=== PATIENT | female | born 1975 | race Caucasian/White ===

== ENCOUNTER 2018-04-22 00:02 | Inpatient (IN) ==
[2018-04-22] MEDS ORDERED: PENICILLIN G POTASSIUM 5 MILLIONUNT in DEXTROSE 5 % IN WATER 100 ML IV ONE ×2 (00:34)
[2018-04-22] MEDS ORDERED: ONDANSETRON HCL/PF 2 MG/ML VIAL IV PRN (00:34)
[2018-04-22] MEDS ORDERED: DEXTROSE 5%-LACTATED RINGERS 1,000 ML IV PRN (00:34)
[2018-04-22] MEDS ORDERED: RINGER'S SOLUTION,LACTATED 1,000 ML IV ONE (00:34)
[2018-04-22] MEDS ORDERED: OXYTOCIN/DEXTROSE 5%-WATER 30 UNITS/500 ML BAG IV ONE (00:34)
[2018-04-22] MEDS: MISOPROSTOL 100 MCG TABLET VG PRN ×3 (01:29→09:37)
[2018-04-22] MEDS: PENICILLIN G POTASSIUM 2.5 MILLIONUNT in DEXTROSE 5 % IN WATER 100 ML IV SCH ×10 (05:35→17:49)
--- NOTE | 2018-04-22 12:18 | PN ---
Progess Note - Interim Date: 04/22/18 Time: 12:16 Narrative: 04/22/18 12:16 Patient rating her contractions as mild Vital signs stable. Status post 3 doses of Cytotec vaginally. FHT: reassuring Contractions q irregular Cervix: 50/-2 per nurse Impression: Intrauterine at 39-3/7 weeks induction of labor for advanced maternal age. Group B strep carrier-status post 3 doses of IV penicillin Plan: Continue present plan
--- NOTE | 2018-04-22 16:17 | PN ---
Progess Note - Interim Date: 04/22/18 Time: 16:14 Narrative: 04/22/18 16:14 Patient rating her contractions as mild Vital signs stable. Status post Cytotec 3 doses-last dose over 2 hours ago. FHT: 120 baseline, reassuring Contractions q 1-3 min Cervix: 1-2/60/-3, AROM-clear Impression: Intrauterine at 39-3/7 weeks induction of labor for advanced maternal age. GBS positive-status post 4 doses of IV penicillin Plan: Continue present plan
[2018-04-23] MEDS ORDERED: LIDOCAINE HCL 50 ML VIAL ONE (00:39)
[2018-04-23] MEDS: PENICILLIN G POTASSIUM 2.5 MILLIONUNT in DEXTROSE 5 % IN WATER 100 ML IV SCH ×2 (01:44)
[2018-04-23] MEDS ORDERED: NALOXONE HCL 1 MG/1 ML SYRG IV PRN (01:54)
[2018-04-23] MEDS ORDERED: ONDANSETRON HCL/PF 2 MG/ML VIAL IV PRN (01:54)
[2018-04-23] MEDS ORDERED: BUPIVACAINE HCL/0.9 % NACL/PF 250 ML EP PRN (01:54)
[2018-04-23] MEDS ORDERED: fentaNYL CITRATE/PF 50 MCG/ML AMPUL IT SCH (02:00)
--- NOTE | 2018-04-23 02:47 | OR ---
Anesthesia Procedure Note - Anesthesia Procedure Note Narrative: Vital Signs - Last Taken Temp 36.6 C 04/23/18 02:21 Pulse 98 04/23/18 02:21 Resp 20 04/23/18 02:21 BP 146/92 04/23/18 02:21 Pulse Ox 98 04/23/18 02:21 04/23/18 02:46 ANESTHESIA PROCEDURE NOTE Date of Procedure: 04/23/2018 Time of procedure: O2 30. Performed by: Fransico Elizondo CRNA Feed In Worker: None. Preprocedure diagnosis: Active labor. Post procedure diagnosis: Same. Procedure: Insertion of labor epidural. Indications: The patient is a 42 -year-old multigravida female in active labor requesting labor epidural for pain management. Findings: See below. Details of the procedure: The patient was placed in a sitting position. Back was prepped with DuraPrep. Patient was then draped in a sterile fashion. Lidocaine 1% was infiltrated to the skin and subcutaneous tissues at the level of the L3 4 interspace. The epidural space was identified using a 18-gauge Tuohy needle with [id number] technique. 20 mcg fentanyl was given intrathecally using a 27 ga. spinal needle. Epidural catheter was inserted without difficulty. Negative test dose was elicited using 5 mL of 1.5% preservative-free lidocaine plus epinephrine 1 200,000. The epidural catheter was then taped and secured in place. EBL: Minimal. Fluids: N/A. Specimen: N/A. Post procedure condition: The patient tolerated the procedure well. No complications were noted. Thank you for this consultation. Avelar CRNA
--- NOTE | 2018-04-23 04:23 | PN ---
Progess Note - Interim Date: 04/23/18 Time: 04:15 Narrative: 04/23/18 04:15 Patient comfortable with epidural Vital signs stable. Pitocin at 16 mu/min FHT 140 bpm, good BTBV, early decelerations Ctxs q 1-2 min Impression: 39 4/7 wks miedical induction of labor due to AMA. GBS carrier - s/ p IV PCN x 6 doses (last dose at 0140) Plan: anticipate soon.
[2018-04-23] MEDS ORDERED: LIDOCAINE HCL 50 ML VIAL IJ ONE (05:18)
--- NOTE | 2018-04-23 05:30 | OR ---
Operative Report - Dictated Report Narrative: Spontaneous vaginal delivery of viable male it 0506 on 04/23/2018 with Apgars 8 and 9, weighing 3912 g in DAVID position. Cord clamping delayed approximately 1 minute Placenta delivered complete, intact, with three vessel cord Estimated blood loss: less than 50 ml Anesthesia: Epidural and 1% lidocaine local anesthesia Lacerations: Second degree vaginal laceration (4 cm) repaired with 3-0 Vicryl Rapide History for MU Definition: * The number of deliveries resulting in a live the patient experienced prior to current hospitalization * The previous delivery of live twins or any live multiple gestation is considered one live event. *If primagravida or nulliparous is documented select zero for the number of previous live births. Live Events: 3
[2018-04-23] MEDS ORDERED: HYDROCORTISONE 30 APPL TUBE TP PRN (05:31)
[2018-04-23] MEDS ORDERED: GLYCERIN/WITCH HAZEL LEAF 40 APPL BOX TP PRN (05:31)
[2018-04-23] MEDS ORDERED: BENZOCAINE/MENTHOL 81 SPRAY CAN TP PRN (05:31)
[2018-04-23] MEDS ORDERED: OXYTOCIN/DEXTROSE 5%-WATER 30 UNITS/500 ML BAG IV ONE (05:31)
[2018-04-23] MEDS ORDERED: oxyCODONE HCL/ACETAMINOPHEN 1 TAB TABLET PO PRN ×2 (05:31)
[2018-04-23] MEDS ORDERED: BISACODYL 10 MG SUPP.RECT RC PRN (05:31)
[2018-04-23] MEDS ORDERED: SENNOSIDES 8.6 MG TABLET PO PRN (05:31)
[2018-04-23] MEDS: DOCUSATE SODIUM 100 MG CAPSULE PO SCH ×2 (10:27→20:17)
[2018-04-23] MEDS: IBUPROFEN 800 MG TABLET PO PRN ×2 (13:30→20:18)
--- NOTE | 2018-04-24 07:36 | PN ---
Subjective - Date and Time Seen Date: 04/24/18 Time: 07:35 Objective - Vitals Vitals: Last Vital Signs Temp 36.5 C 04/23/18 23:45 Pulse 68 04/23/18 23:45 Resp 20 04/23/18 23:45 BP 122/69 04/23/18 23:45 Pulse Ox 99 04/23/18 23:45 Patient denies complaints. Lochia wnl Abdomen - soft, nontender Uterus - firm, at umbilicus - 1 No calf tenderness Impression: day #1 - s/p spontaneous vaginal delivery. Advanced maternal age. Morbid obesity. Plan: Continue routine care.
[2018-04-24] MEDS: IBUPROFEN 800 MG TABLET PO PRN ×2 (08:04→21:46)
[2018-04-24] MEDS: DOCUSATE SODIUM 100 MG CAPSULE PO SCH ×2 (08:05→21:46)
[2018-04-25] MEDS: IBUPROFEN 800 MG TABLET PO PRN (04:43)
[2018-04-25 06:52] VITALS: BP 127/57
[2018-04-25] MEDS: DOCUSATE SODIUM 100 MG CAPSULE PO SCH (09:54)
--- NOTE | 2018-04-25 10:09 | PN ---
Subjective - Date and Time Seen Date: 04/25/18 Subjective Narrative: day 2, s/p doing well. no complaints. . normal lochia. Objective - Vitals Vitals: Last Vital Signs Temp 36.7 C 04/25/18 06:49 Pulse 71 04/25/18 06:49 Resp 16 04/25/18 06:49 BP 127/57 04/25/18 06:49 Pulse Ox 100 04/24/18 19:25 - Exam Constitutional: Present: Alert, Oriented x3, Cooperative Respiratory: Present: no respiratory distress Cardiovascular/Chest: Present: normal peripheral pulses Abdomen: Present: soft, nontender, nondistended, other - fundus firm, below umbilicus and non-tender Extremity: Present: normal range of motion, no pedal edema, no calf tenderness Skin Exam: Present: normal color, warm/dry, no cyanosis Appearance: Present: appropriate appearance Eye contact: Present: cooperative, good eye contact, normal speech Assessment/Plan Plan Narrative: A: day 2, s/p stable and well. Plan: will discharge home today. Drew Bernard MD
== END 2018-04-25 13:30 | disposition home or self-care (01) | DRG 775 ==
LOC: OB 00:02
PROVIDERS: ADMIT Obstetrics & Gynecology; ATTEND Obstetrics & Gynecology
DX: Z3A.39 39 weeks gestation of pregnancy; Z68.41 Body mass index [BMI] 40.0-44.9, adult; O99.824 Streptococcus B carrier state complicating childbirth; O99.214 Obesity complicating childbirth; Z37.0 Single live birth; E66.01 Morbid (severe) obesity due to excess calories; O70.1 Second degree perineal laceration during delivery
CPT/HCPCS: 59025